=== PATIENT | female | born 2000 | race Caucasian/White ===

== ENCOUNTER 2021-08-20 22:00 | Inpatient (IN) | payer OTHER ==
[~2021-08-20] VITALS: Ht 30.5 cm; Wt 68.0 kg
[2021-08-20 23:00] VITALS: BP 95/63
[2021-08-21 01:25] LABS: INR 1.18 (0.9-1.15); Partial Thromboplastin Time 40.3 sec (23.6-33.0)
[2021-08-21 01:26] LABS: Basophils # (auto) 0 10 ^3/uL (0-0.2); Basophils % (auto) 0.4 % (0.0-2.0); Eosinophils # (auto) 0 10 ^3/uL (0-0.8); Mean Corpuscular Hgb Conc. 34.9 g/dL (32.0-36.0)
[2021-08-21 01:29] LABS: Eosinophils % (auto) 0.1 % (0.0-7.0); Hematocrit 31.3 % (36.0-46.0); Hemoglobin 10.9 g/dL (12.2-16.2); Lymphocytes # (auto) 0.5 10 ^3/uL (0.4-5.4); Lymphocytes % (auto) 17.2 % (10.0-50.0); Mean Corpuscular Hemoglobin 31.9 pg (28.0-32.0); Mean Corpuscular Volume 91.5 fL (80.0-100.0); Monocytes # (auto) 0.3 10 ^3/uL (0-1.3); Neutrophils # (auto) 2.4 10 ^3/uL (1.6-8.6); Neutrophils % (auto) 74.3 % (37.0-80.0); Nucleated Red Blood Cells % 0.4 %; Red Blood Cells 3.42 10^6/uL (4.0-5.20); Red Cell Distribution Width 14.8 % (11.8-14.3); White Blood Cell 3.2 10^3/uL (4.4-10.8)
[2021-08-21 01:37] LABS: Albumin 2.5 g/dL (3.4-5.0); Calcium 7.5 mg/dL (8.5-10.1)
[2021-08-21 01:45] LABS: Bilirubin, Total 0.3 mg/dL (0.2-1.0); Total Protein 6.8 g/dL (6.4-8.2)
[2021-08-21 02:05] LABS: CRP High Sensitivity 1.77 mg/dL (< 0.3)
[2021-08-21 02:38] LABS: Urine Bacteria FEW /hpf (None Seen); Urine Blood 2+ /uL (Negative); Urine Hyaline Cast FEW /lpf (0 - 2); Urine Specific Gravity 1.013 (1.001-1.035); Urine WBC 14 /hpf (0 - 5)
[2021-08-21] MEDS ORDERED: HYDROcodone-ACET 5/325MG TAB PO PRN (04:45)
[2021-08-21] MEDS ORDERED: MORPHINE SULFATE INJECTION 2 MG/ML SYRG IV PRN ×2 (04:45→08:15)
[2021-08-21] MEDS ORDERED: ONDANSETRON HCL 4 MG/2 ML VIAL IV PRN (04:45)
[2021-08-21] MEDS ORDERED: MORPHINE SULFATE 4 MG/ML SYR/VIAL IV PRN (04:45)
[2021-08-21] MEDS ORDERED: ACETAMINOPHEN 325 MG TAB PO PRN (04:45)
[2021-08-21] MEDS ORDERED: D5W/SOD CHLO 0.9% 1,000 ML IV SCH (04:45)
[2021-08-21] MEDS ORDERED: TEMAZEPAM 15 MG CAP PO PRN (04:45)
[2021-08-21] MEDS ORDERED: NITROGLYCERIN 0.4 MG SL TAB SL PRN (04:45)
[2021-08-21 05:37] VITALS: BP 100/63
[2021-08-21 08:00] VITALS: BP 95/58
[2021-08-21 08:43] LABS: Beta HCG, Quantitative < 1 mlU/mL (1-3); Thyroid Stimulating Hormone 3.44 uIU/mL (0.358-3.74)
[2021-08-21] MEDS: cefTRIAXone 1GM/50ML D5W 50 ML IV SCH (09:00)
[2021-08-21 09:48] LABS: Magnesium 3.1 mg/dL (1.6-2.6)
[2021-08-21 09:49] LABS: % Iron Saturation 21.2 % (15-50)
[2021-08-21 09:50] LABS: Phosphorus 8.3 mg/dL (2.5-4.90)
[2021-08-21 09:50] LABS: Protein, Urine 146.1 mg/dL (0.0-11.9)
[2021-08-21] MEDS ORDERED: methylPREDNISolone SOD SUCC 40 MG/ML VL IV SCH ×2 (10:00→12:00)
[2021-08-21] MEDS ORDERED: D5W/SOD CHLO 0.9% 1,000 ML IV ONE (11:00)
[2021-08-21 12:00] VITALS: BP 102/58
[2021-08-21] MEDS ORDERED: ERGOCALCIFEROL 50,000 UNIT(1.25MG) CAP PO SCH ×2 (12:15→16:45)
[2021-08-21] MEDS ORDERED: ACETAMINOPHEN 500 MG TAB PO ONE (12:30)
[2021-08-21] MEDS ORDERED: ACETAMINOPHEN 500 MG TAB PO PRN (13:15)
[2021-08-21] MEDS: methylPREDNISolone SOD SUCC 1,000 MG in SODIUM CHL 0.9% 250 ML IV SCH (14:20)
[2021-08-21] MEDS: SODIUM BICARBONATE 50ML VIAL 50 ML in SOD CHL 0.45% 1,000 ML IV SCH ×2 (14:20→23:26)
[2021-08-21] MEDS: FLUCONAZOLE 100 MG TAB PO SCH (14:23)
[2021-08-21 14:28] LABS: Hepatitis A Ab IgM Negative; Hepatitis B Core IgM Negative; Hepatitis C Antibody Negative (Negative)
[2021-08-21] MEDS: CALCIUM ACETATE 667 MG CAP PO SCH ×2 (15:16→18:00)
[2021-08-21 16:00] VITALS: BP 95/59
[2021-08-21 17:41] VITALS: BP 100/64
[2021-08-21 21:41] VITALS: BP 103/65
[2021-08-22] MEDS: SODIUM BICARBONATE 50ML VIAL 50 ML in SOD CHL 0.45% 1,000 ML IV SCH ×3 (04:48→22:15)
[2021-08-22 05:27] VITALS: BP 103/72
[2021-08-22 06:50] LABS: Hemoglobin 9.4 g/dL (12.2-16.2)
[2021-08-22 06:53] LABS: Hematocrit 27.8 % (36.0-46.0); Mean Corpuscular Hemoglobin 30.3 pg (28.0-32.0); Mean Corpuscular Hgb Conc. 33.8 g/dL (32.0-36.0); Mean Corpuscular Volume 89.6 fL (80.0-100.0); Red Blood Cells 3.11 10^6/uL (4.0-5.20); Red Cell Distribution Width 15.1 % (11.8-14.3)
[2021-08-22 06:55] LABS: Albumin 2.2 g/dL (3.4-5.0); Calcium 7.3 mg/dL (8.5-10.1); Magnesium 3.8 mg/dL (1.6-2.6); Potassium 4.9 mmol/L (3.5-5.1)
[2021-08-22 07:07] LABS: BUN/Creatinine Ratio 48.8; Bilirubin, Direct 0.2 mg/dL (0-0.2); Bilirubin, Total 0.3 mg/dL (0.2-1.0); Phosphorus 8.2 mg/dL (2.5-4.90); Total Protein 6.6 g/dL (6.4-8.2)
[2021-08-22 07:08] LABS: Folate (Folic Acid) 23.17 ng/mL (5.38-24)
[2021-08-22 07:35] LABS: White Blood Cell 1.9 10^3/uL (4.4-10.8)
[2021-08-22 07:36] LABS: Basophils % (manual) 0 (0.0-2.0); Blast Cells 0; Eosinophils % (manual) 0 (0-7); Metamyelocytes % 0; Myelocytes % 0; Promyelocytes % 0; Reactive Lymphocytes 0
[2021-08-22] MEDS: CALCIUM ACETATE 667 MG CAP PO SCH ×3 (08:00→18:00)
[2021-08-22 08:45] LABS: Band Neutrophils % (manual) 4; Lymphocytes % (manual) 31 (10.0-50.0); Monocytes % (manual) 3 (0-12)
[2021-08-22 09:00] VITALS: BP 103/65
[2021-08-22] MEDS: FLUCONAZOLE 100 MG TAB PO SCH (10:00)
[2021-08-22] MEDS ORDERED: FLUCONAZOLE 100 MG TAB PO SCH (10:00)
[2021-08-22] MEDS: cefTRIAXone 1GM/50ML D5W 50 ML IV SCH (10:23)
[2021-08-22 12:58] VITALS: BP 102/70
[2021-08-22] MEDS: methylPREDNISolone SOD SUCC 1,000 MG in SODIUM CHL 0.9% 250 ML IV SCH (14:23)
[2021-08-22 16:52] VITALS: BP 104/67
[2021-08-22] MEDS: DOPamine 1600MCG/ML D5W 250 ML IV SCH (18:13)
[2021-08-22 22:00] VITALS: BP 108/66
[2021-08-23 05:00] VITALS: BP 105/67
[2021-08-23 06:33] LABS: Basophils # (auto) 0 10 ^3/uL (0-0.2); Basophils % (auto) 0.5 % (0.0-2.0); Eosinophils # (auto) 0 10 ^3/uL (0-0.8); Neutrophils # (auto) 2.4 10 ^3/uL (1.6-8.6)
[2021-08-23 06:36] LABS: Eosinophils % (auto) 0.8 % (0.0-7.0); Hematocrit 26.8 % (36.0-46.0); Lymphocytes # (auto) 0.8 10 ^3/uL (0.4-5.4); Lymphocytes % (auto) 22.1 % (10.0-50.0); Mean Corpuscular Hemoglobin 35.9 pg (28.0-32.0); Mean Corpuscular Volume 96.5 fL (80.0-100.0); Monocytes # (auto) 0.2 10 ^3/uL (0-1.3); Monocytes % (auto) 7.1 % (0.0-12.0); Neutrophils % (auto) 69.5 % (37.0-80.0); Nucleated Red Blood Cells % 0.3 %; Red Blood Cells 2.77 10^6/uL (4.0-5.20); Red Cell Distribution Width 15.1 % (11.8-14.3); White Blood Cell 3.5 10^3/uL (4.4-10.8)
[2021-08-23 06:38] LABS: Albumin 2.3 g/dL (3.4-5.0); Calcium 6.9 mg/dL (8.5-10.1); Potassium 4.7 mmol/L (3.5-5.1)
[2021-08-23 06:43] LABS: BUN/Creatinine Ratio 54.3; Bilirubin, Total 0.2 mg/dL (0.2-1.0); Total Protein 6.2 g/dL (6.4-8.2)
[2021-08-23 06:50] LABS: Mean Corpuscular Hgb Conc. 37.2 g/dL (32.0-36.0)
[2021-08-23] MEDS: SODIUM BICARBONATE 50ML VIAL 50 ML in SOD CHL 0.45% 1,000 ML IV SCH ×3 (06:51→21:00)
[2021-08-23] MEDS: CALCIUM ACETATE 667 MG CAP PO SCH ×4 (08:00→18:00)
[2021-08-23 09:00] VITALS: BP 109/67
[2021-08-23] MEDS ORDERED: FAMOTIDINE 20 MG TAB PO SCH (10:00)
[2021-08-23] MEDS: cefTRIAXone 1GM/50ML D5W 50 ML IV SCH (10:12)
[2021-08-23] MEDS: FLUCONAZOLE 100 MG TAB PO SCH (10:13)
[2021-08-23] MEDS ORDERED: PANTOPRAZOLE 40 MG/10 ML VIAL INJ IV ONE (10:30)
[2021-08-23] MEDS: DOPamine 1600MCG/ML D5W 250 ML IV SCH (12:21)
[2021-08-23] MEDS: methylPREDNISolone SOD SUCC 1,000 MG in SODIUM CHL 0.9% 250 ML IV SCH (12:21)
[2021-08-23] MEDS: MAGIC MOUTHWASH 55 ML SUSP MT SCH ×3 (12:21→21:50)
[2021-08-23 13:00] VITALS: BP 101/70
[2021-08-23 16:51] VITALS: BP 100/64
[2021-08-23 19:00] LABS: Hemoglobin 8.7 g/dL (12.2-16.2); Mean Corpuscular Hemoglobin 29.7 pg (28.0-32.0); Red Blood Cells 2.93 10^6/uL (4.0-5.20); White Blood Cell 3.3 10^3/uL (4.4-10.8)
[2021-08-23 19:02] LABS: Hematocrit 25.7 % (36.0-46.0); Mean Corpuscular Hgb Conc. 33.7 g/dL (32.0-36.0); Red Cell Distribution Width 15.1 % (11.8-14.3)
[2021-08-23 19:05] LABS: Band Neutrophils % (manual) 0; Basophils % (manual) 0 (0.0-2.0); Blast Cells 0; Eosinophils % (manual) 0 (0-7); Metamyelocytes % 0; Myelocytes % 0; Promyelocytes % 0; Reactive Lymphocytes 0
[2021-08-23 19:24] LABS: Lymphocytes % (manual) 13 (10.0-50.0); Monocytes % (manual) 8 (0-12)
[2021-08-23 22:00] VITALS: BP 109/66
[2021-08-24 05:00] VITALS: BP 109/72
[2021-08-24] MEDS: MAGIC MOUTHWASH 55 ML SUSP MT SCH ×3 (06:00→18:37)
[2021-08-24] MEDS: CALCIUM ACETATE 667 MG CAP PO SCH ×3 (08:32→18:37)
[2021-08-24] MEDS: SODIUM BICARBONATE 50ML VIAL 50 ML in SOD CHL 0.45% 1,000 ML IV SCH ×2 (08:32→18:37)
[2021-08-24 09:00] VITALS: BP 108/69
[2021-08-24] MEDS: cefTRIAXone 1GM/50ML D5W 50 ML IV SCH (09:39)
[2021-08-24 09:54] LABS: White Blood Cell 3.9 10^3/uL (4.4-10.8)
[2021-08-24 09:57] LABS: Hematocrit 22.9 % (36.0-46.0); Hemoglobin 7.8 g/dL (12.2-16.2); Mean Corpuscular Hemoglobin 28.9 pg (28.0-32.0); Mean Corpuscular Hgb Conc. 33.8 g/dL (32.0-36.0); Mean Corpuscular Volume 85.5 fL (80.0-100.0); Red Blood Cells 2.68 10^6/uL (4.0-5.20)
[2021-08-24 10:01] LABS: Basophils % (manual) 0 (0.0-2.0); Blast Cells 0; Eosinophils % (manual) 0 (0-7); Metamyelocytes % 0; Promyelocytes % 0; Reactive Lymphocytes 0
[2021-08-24 10:07] LABS: Albumin 2.2 g/dL (3.4-5.0); Calcium 7.8 mg/dL (8.5-10.1); Potassium 4.1 mmol/L (3.5-5.1)
[2021-08-24 10:11] LABS: BUN/Creatinine Ratio 61.7; Bilirubin, Total 0.2 mg/dL (0.2-1.0)
[2021-08-24 11:08] LABS: Band Neutrophils % (manual) 5; Lymphocytes % (manual) 9 (10.0-50.0); Monocytes % (manual) 12 (0-12); Myelocytes % 1
[2021-08-24] MEDS: FLUCONAZOLE 100 MG TAB PO SCH (11:23)
[2021-08-24] MEDS: predniSONE 20 MG TAB PO SCH (11:23)
[2021-08-24] MEDS: PANTOPRAZOLE 40 MG/10 ML VIAL INJ IV SCH (11:23)
[2021-08-24] MEDS: DOPamine 1600MCG/ML D5W 250 ML IV SCH (12:47)
[2021-08-24 17:00] VITALS: BP 106/67
[2021-08-24 22:00] VITALS: BP 114/74
[2021-08-25] VITALS (7 sets, daily range): BP systolic 103–118; BP diastolic 65–78
[2021-08-25] MEDS: SODIUM BICARBONATE 50ML VIAL 50 ML in SOD CHL 0.45% 1,000 ML IV SCH ×2 (04:30→10:23)
[2021-08-25 05:35] LABS: Basophils # (auto) 0 10 ^3/uL (0-0.2); Basophils % (auto) 0.1 % (0.0-2.0); Eosinophils # (auto) 0 10 ^3/uL (0-0.8); Hematocrit 24.8 % (36.0-46.0); Hemoglobin 8.6 g/dL (12.2-16.2); Lymphocytes # (auto) 0.4 10 ^3/uL (0.4-5.4); Lymphocytes % (auto) 5.5 % (10.0-50.0); Mean Corpuscular Hemoglobin 29.2 pg (28.0-32.0); Mean Corpuscular Hgb Conc. 34.8 g/dL (32.0-36.0); Mean Corpuscular Volume 83.9 fL (80.0-100.0); Monocytes # (auto) 0.7 10 ^3/uL (0-1.3); Monocytes % (auto) 10.2 % (0.0-12.0); Neutrophils % (auto) 84.2 % (37.0-80.0); Nucleated Red Blood Cells % 0.2 %; Red Blood Cells 2.95 10^6/uL (4.0-5.20); Red Cell Distribution Width 14.7 % (11.8-14.3); White Blood Cell 7.1 10^3/uL (4.4-10.8)
[2021-08-25 05:56] LABS: Potassium 3.7 mmol/L (3.5-5.1)
[2021-08-25 06:02] LABS: Albumin 2.4 g/dL (3.4-5.0); BUN/Creatinine Ratio 67.9; Bilirubin, Total 0.2 mg/dL (0.2-1.0); Calcium 8.1 mg/dL (8.5-10.1); Total Protein 5.8 g/dL (6.4-8.2)
[2021-08-25 08:49] LABS: INR 1.08 (0.9-1.15); Partial Thromboplastin Time 24.5 sec (23.6-33.0)
[2021-08-25] MEDS ORDERED: LIDOCAINE 2%HCL (LOCAL ANESTH.) INJ 20ML MDV ONE (08:49)
[2021-08-25] MEDS ORDERED: MIDAZOLAM HCL 2MG/2ML 2ml VIAL (1mg/ml) ONE (08:50)
[2021-08-25] MEDS ORDERED: fentaNYL CITRATE 100 MCG/2 ML VL ONE (08:51)
[2021-08-25] MEDS: CALCIUM ACETATE 667 MG CAP PO SCH ×3 (10:16→17:41)
[2021-08-25] MEDS: predniSONE 20 MG TAB PO SCH (10:17)
[2021-08-25] MEDS: FLUCONAZOLE 100 MG TAB PO SCH (10:17)
[2021-08-25] MEDS: MAGIC MOUTHWASH 55 ML SUSP MT SCH ×4 (10:18→22:00)
[2021-08-25] MEDS: cefTRIAXone 1GM/50ML D5W 50 ML IV SCH (10:22)
[2021-08-25] MEDS: PANTOPRAZOLE 40 MG/10 ML VIAL INJ IV SCH ×2 (10:22→22:00)
[2021-08-25] MEDS: DOPamine 1600MCG/ML D5W 250 ML IV SCH (10:45)
[2021-08-25] MEDS ORDERED: LACTULOSE 20Gm/30ML SOLN PO PRN (14:30)
[2021-08-25] MEDS: SOD CHL 0.45% 1,000 ML IV SCH ×2 (16:10→18:10)
[2021-08-26 05:00] VITALS: BP 98/61
[2021-08-26 05:37] LABS: Hemoglobin 7.6 g/dL (12.2-16.2); White Blood Cell 7.6 10^3/uL (4.4-10.8)
[2021-08-26 05:40] LABS: Hematocrit 22.7 % (36.0-46.0); Mean Corpuscular Hemoglobin 29.7 pg (28.0-32.0); Mean Corpuscular Hgb Conc. 33.6 g/dL (32.0-36.0); Mean Corpuscular Volume 88.4 fL (80.0-100.0); Red Blood Cells 2.57 10^6/uL (4.0-5.20); Red Cell Distribution Width 15.1 % (11.8-14.3)
[2021-08-26] MEDS: MAGIC MOUTHWASH 55 ML SUSP MT SCH ×4 (05:42→22:50)
[2021-08-26 05:49] LABS: Albumin 2.4 g/dL (3.4-5.0)
[2021-08-26 05:54] LABS: BUN/Creatinine Ratio 66.5; Bilirubin, Total 0.2 mg/dL (0.2-1.0); Total Protein 5.5 g/dL (6.4-8.2)
[2021-08-26 06:06] LABS: Basophils % (manual) 0 (0.0-2.0); Blast Cells 0; Eosinophils % (manual) 0 (0-7); Myelocytes % 0; Promyelocytes % 0; Reactive Lymphocytes 0
[2021-08-26] MEDS: cefTRIAXone 1GM/50ML D5W 50 ML IV SCH (08:24)
[2021-08-26] MEDS: CALCIUM ACETATE 667 MG CAP PO SCH ×3 (08:24→18:11)
[2021-08-26 09:00] VITALS: BP 89/64
[2021-08-26] MEDS: DOPamine 1600MCG/ML D5W 250 ML IV SCH (10:45)
[2021-08-26] MEDS: predniSONE 20 MG TAB PO SCH (10:47)
[2021-08-26] MEDS: FLUCONAZOLE 100 MG TAB PO SCH (10:47)
[2021-08-26] MEDS: PANTOPRAZOLE 40 MG/10 ML VIAL INJ IV SCH ×2 (10:47→22:50)
[2021-08-26] MEDS: SOD CHL 0.45% 1,000 ML IV SCH ×2 (10:48→22:49)
[2021-08-26 12:04] LABS: Band Neutrophils % (manual) 4; Lymphocytes % (manual) 8 (10.0-50.0); Metamyelocytes % 1; Monocytes % (manual) 7 (0-12)
[2021-08-27] MEDS: SOD CHL 0.45% 1,000 ML IV SCH ×2 (00:49→16:45)
[2021-08-27] MEDS: MAGIC MOUTHWASH 55 ML SUSP MT SCH ×4 (06:06→22:00)
[2021-08-27 06:07] LABS: Hematocrit 19.6 % (36.0-46.0); Mean Corpuscular Hemoglobin 29.5 pg (28.0-32.0); Mean Corpuscular Hgb Conc. 33.7 g/dL (32.0-36.0); Mean Corpuscular Volume 87.4 fL (80.0-100.0); Red Blood Cells 2.25 10^6/uL (4.0-5.20); White Blood Cell 7.4 10^3/uL (4.4-10.8)
[2021-08-27 06:28] LABS: Potassium 3.9 mmol/L (3.5-5.1)
[2021-08-27 06:34] LABS: Hemoglobin 6.6 g/dL (12.2-16.2)
[2021-08-27 06:35] LABS: Basophils % (manual) 0 (0.0-2.0); Blast Cells 0; Eosinophils % (manual) 0 (0-7); Metamyelocytes % 0; Promyelocytes % 0; Reactive Lymphocytes 0
[2021-08-27 06:44] LABS: Albumin 2.3 g/dL (3.4-5.0); BUN/Creatinine Ratio 68.1; Bilirubin, Total 0.2 mg/dL (0.2-1.0); Calcium 7.7 mg/dL (8.5-10.1); Total Protein 5.6 g/dL (6.4-8.2)
[2021-08-27 07:43] LABS: Band Neutrophils % (manual) 8; Lymphocytes % (manual) 4 (10.0-50.0); Monocytes % (manual) 5 (0-12); Myelocytes % 1
[2021-08-27] MEDS: CALCIUM ACETATE 667 MG CAP PO SCH ×3 (08:00→17:59)
[2021-08-27] MEDS: predniSONE 20 MG TAB PO SCH (08:45)
[2021-08-27] MEDS: PANTOPRAZOLE 40 MG/10 ML VIAL INJ IV SCH ×2 (08:45→23:26)
[2021-08-27] MEDS: FLUCONAZOLE 100 MG TAB PO SCH (08:46)
[2021-08-27 09:00] VITALS: BP 114/74
[2021-08-27] MEDS: cefTRIAXone 1GM/50ML D5W 50 ML IV SCH (09:00)
[2021-08-27] MEDS: DOPamine 1600MCG/ML D5W 250 ML IV SCH (10:45)
[2021-08-27 13:00] VITALS: BP 116/73
[2021-08-27 17:00] VITALS: BP 113/73
[2021-08-27 23:05] VITALS: BP 113/76
[2021-08-27 23:33] VITALS: BP 127/77
[2021-08-28] VITALS (7 sets, daily range): BP systolic 103–125; BP diastolic 64–84
[2021-08-28] MEDS: SOD CHL 0.45% 1,000 ML IV SCH ×2 (02:45→04:45)
[2021-08-28] MEDS: MAGIC MOUTHWASH 55 ML SUSP MT SCH ×4 (06:00→21:57)
[2021-08-28 06:04] LABS: White Blood Cell 7.3 10^3/uL (4.4-10.8)
[2021-08-28 06:07] LABS: Hematocrit 23.4 % (36.0-46.0); Hemoglobin 7.9 g/dL (12.2-16.2); Mean Corpuscular Hemoglobin 30.5 pg (28.0-32.0); Mean Corpuscular Volume 89.7 fL (80.0-100.0); Red Cell Distribution Width 14.9 % (11.8-14.3)
[2021-08-28 06:27] LABS: Basophils % (manual) 0 (0.0-2.0); Blast Cells 0; Eosinophils % (manual) 0 (0-7); Promyelocytes % 0; Reactive Lymphocytes 0
[2021-08-28 06:36] LABS: Potassium 4.1 mmol/L (3.5-5.1)
[2021-08-28 06:42] LABS: Albumin 2.5 g/dL (3.4-5.0); BUN/Creatinine Ratio 52.8; Bilirubin, Direct 0.1 mg/dL (0-0.2); Calcium 8.5 mg/dL (8.5-10.1)
[2021-08-28 06:45] LABS: Bilirubin, Total 0.3 mg/dL (0.2-1.0); Total Protein 5.8 g/dL (6.4-8.2)
[2021-08-28 07:43] LABS: Band Neutrophils % (manual) 14; Lymphocytes % (manual) 4 (10.0-50.0); Metamyelocytes % 2; Monocytes % (manual) 2 (0-12); Myelocytes % 1
[2021-08-28] MEDS: CALCIUM ACETATE 667 MG CAP PO SCH ×3 (08:00→17:49)
[2021-08-28] MEDS ORDERED: diphenhdrAMINE HCL 50 MG/1 ML VL ONE (08:17)
[2021-08-28] MEDS ORDERED: SODIUM CHLORIDE LOCK 10 ML ONE (08:17)
[2021-08-28] MEDS ORDERED: LIDOCAINE VISCOUS 2% 15ML UD ONE (08:17)
[2021-08-28] MEDS: PANTOPRAZOLE 40 MG/10 ML VIAL INJ IV SCH ×2 (09:09→21:56)
[2021-08-28] MEDS: cefTRIAXone 1GM/50ML D5W 50 ML IV SCH (09:09)
[2021-08-28] MEDS: DOPamine 1600MCG/ML D5W 250 ML IV SCH (10:45)
[2021-08-28] MEDS: MIDAZOLAM HCL 5 MG/ML-1ML VIAL ONE ×2 (10:49→10:52)
[2021-08-28] MEDS: fentaNYL CITRATE 100 MCG/2 ML VL ONE ×2 (10:49→10:52)
[2021-08-28] MEDS: predniSONE 20 MG TAB PO SCH (13:02)
[2021-08-28] MEDS: FLUCONAZOLE 100 MG TAB PO SCH (13:02)
[2021-08-28] MEDS: SUCRALFATE 1 GM/10 ML ORAL SUSP PO SCH ×3 (13:02→21:56)
[2021-08-28] MEDS ORDERED: D5W 5% 1,000 ML IV ONE (14:45)
[2021-08-29 05:00] VITALS: BP 116/90
[2021-08-29] MEDS: MAGIC MOUTHWASH 55 ML SUSP MT SCH ×2 (05:21→12:00)
[2021-08-29] MEDS: SUCRALFATE 1 GM/10 ML ORAL SUSP PO SCH ×2 (05:21→12:13)
[2021-08-29 08:20] LABS: Chloride 119 mmol/L (98-107); Potassium 4.5 mmol/L (3.5-5.1); Sodium 148 mmol/L (136-145)
[2021-08-29 08:35] LABS: Alanine Aminotransferase 84 U/L (13-56); Albumin 2.3 g/dL (3.4-5.0); Alkaline Phosphatase 76 U/L (45-117); Anion Gap 6 (5-15); Aspartate Aminotransferase 90 U/L (15-37); BUN/Creatinine Ratio 39.6; Bilirubin, Direct < 0.1 mg/dL (0-0.2); Bilirubin, Total 0.2 mg/dL (0.2-1.0); Blood Urea Nitrogen 44 mg/dL (7-18); Calcium 8.6 mg/dL (8.5-10.1); Carbon Dioxide 23 mmol/L (21-32); GFR African American 79 mL/min; GFR Non-African American 65 mL/min; Glucose 88 mg/dL (74-106)
[2021-08-29 08:57] LABS: Mean Corpuscular Hgb Conc. 33.3 g/dL (32.0-36.0); Mean Corpuscular Volume 90.1 fL (80.0-100.0); Red Blood Cells 2.67 10^6/uL (4.0-5.20); Red Cell Distribution Width 15.6 % (11.8-14.3)
[2021-08-29 09:00] LABS: Basophils % (manual) 0 (0.0-2.0); Blast Cells 0; Eosinophils % (manual) 0 (0-7); Myelocytes % 0; Promyelocytes % 0; Reactive Lymphocytes 0
[2021-08-29 09:57] VITALS: BP 127/79
[2021-08-29] MEDS: cefTRIAXone 1GM/50ML D5W 50 ML IV SCH (10:01)
[2021-08-29] MEDS: CALCIUM ACETATE 667 MG CAP PO SCH ×2 (10:01→12:13)
[2021-08-29] MEDS: PANTOPRAZOLE 40 MG/10 ML VIAL INJ IV SCH (10:01)
[2021-08-29] MEDS: predniSONE 20 MG TAB PO SCH (10:02)
[2021-08-29] MEDS: FLUCONAZOLE 100 MG TAB PO SCH (10:02)
[2021-08-29 10:18] LABS: Band Neutrophils % (manual) 2; Lymphocytes % (manual) 6 (10.0-50.0); Metamyelocytes % 1; Monocytes % (manual) 4 (0-12)
[2021-08-29] MEDS ORDERED: PRE5T PO (11:31)
[2021-08-29] MEDS ORDERED: PANT40TA2 PO (11:31)
[2021-08-29] MEDS ORDERED: PRED1PAK9 PO (11:31)
[2021-08-29] MEDS ORDERED: PRED10TA PO (11:31)
[2021-08-29] MEDS ORDERED: PRED20TA2 PO (11:31)
[2021-08-29] MEDS ORDERED: SUCR1SUS10 PO (11:31)
[2021-08-29] MEDS ORDERED: ERGO1CAP23 PO (11:56)
[2021-08-29] MEDS: DOPamine 1600MCG/ML D5W 250 ML IV SCH (12:13)
[2021-08-29 12:44] VITALS: BP 127/79
[2021-08-29 14:26] VITALS: BP 127/70
[2021-08-30] MEDS ORDERED: LIDOCAINE VISCOUS 2% 15ML UD ONE ×3 (15:28→15:44)
== END 2021-08-29 16:00 | disposition home or self-care (01) | DRG 871 ==
LOC: TELE-WESTW 22:00
PROVIDERS: ADMIT Internal Medicine; ATTEND Internal Medicine
PROC: 0TB13ZX Excision of Left Kidney, Percutaneous Approach, Diagnostic (ICD-10-PCS; 2021-08-25)
PROC: 30233N1 Transfusion of Nonautologous Red Blood Cells into Peripheral Vein, Percutaneous Approach (ICD-10-PCS; 2021-08-27)
PROC: 0DJ08ZZ Inspection of Upper Intestinal Tract, Via Natural or Artificial Opening Endoscopic (ICD-10-PCS; principal; 2021-08-28 10:40)
DX: A41.9 Sepsis, unspecified organism (principal); I50.21 Acute systolic (congestive) heart failure; K25.4 Chronic or unspecified gastric ulcer with hemorrhage; N17.9 Acute kidney failure, unspecified; D61.818 Other pancytopenia; N30.00 Acute cystitis without hematuria; D68.62 Lupus anticoagulant syndrome; I95.9 Hypotension, unspecified; E83.39 Other disorders of phosphorus metabolism; D69.6 Thrombocytopenia, unspecified; Z20.822 Contact with and (suspected) exposure to COVID-19; M32.9 Systemic lupus erythematosus, unspecified; M32.14 Glomerular disease in systemic lupus erythematosus; D64.9 Anemia, unspecified; K29.70 Gastritis, unspecified, without bleeding
CPT/HCPCS: 10005; 36415; 70551; 71045; 74150; 76700; 77012; 80048; 80053; 80074; 80076; 81001; 82105; 82248; 82270; 82306; 82570; 82607; 82746; 83036; 83520; 83540; 83550; 83605; 83615; 83735; 83880; 83935; 83970; 84100; 84156; 84439; 84443; 84702; 85007; 85025; 85027; 85379; 85610; 85613; 85652; 85670; 85705; 85730; 85732; 86038; 86141; 86147; 86160; 86225; 86256; 86431; 86677; 86703; 86850; 86900; 86901; 86920; 87040; 87086; 87088; 87186; 87426; 87804; 93306; 97110; 97116; 97163; 97530; C9113; G0378; J0696; J2250; J7042